=== PATIENT | female | born 1990 | race Caucasian/White ===

== ENCOUNTER 2017-02-08 12:10 | Emergency (ER) | payer BC ==
[~2017-02-08] VITALS: Ht 170.2 cm; Wt 56.9 kg
[2017-02-08 16:33] VITALS: BP 105/74
== END 2017-02-08 16:33 | disposition home or self-care (01) ==
LOC: ED 12:10
DX: M54.12 Radiculopathy, cervical region (principal); Z88.0 Allergy status to penicillin
CPT/HCPCS: J1885; Q0092